=== PATIENT | female | born 1940 | race Caucasian/White ===

== ENCOUNTER → 2018-11-23 10:46 | Outpatient (CLI) | payer MEDICARE, SELFPAY ==
--- NOTE | 2018-11-23 | DI.MG.S_ITS ---
BILATERAL DIGITAL SCREENING MAMMOGRAM 3D/2D WITH CAD: 11/23/2018 CLINICAL: Routine screening. Family history of breast cancer. Comparison is made to exams dated: 09/24/2017 mammogram, 08/28/2016 mammogram, and 08/14/2015 mammogram - [facility]. There are scattered fibroglandular elements in both breasts. Current study was also evaluated with a Computer Aided Detection (CAD) system. There are benign calcifications in both breasts. No significant masses, calcifications, or other findings are seen in either breast. There has been no significant interval change. IMPRESSION: There is no mammographic evidence of malignancy. A 1 year screening mammogram is recommended. This exam was interpreted at Station ID: [id number]. NOTE: For mammograms, a report in lay terms will be sent to the patient. Approximately 15% of breast malignancies will not be visualized mammographically. In the management of a palpable breast mass, a negative mammogram must not discourage biopsy of a clinically suspicious lesion. Electronically Signed By: Harjeet urrutia/giselle:11/23/2018 13:50:00 letter sent: Normal Exam ACR BI-RADS Category 2: Benign Finding(s) 3342F
== END ==
PROVIDERS: PCP Family Medicine; Visit Provider Family Medicine
DX: Z12.31 Encounter for screening mammogram for malignant neoplasm of breast (principal); Z80.3 Family history of malignant neoplasm of breast
CPT/HCPCS: 77063; 77067

== ENCOUNTER → 2019-05-25 09:17 | Outpatient (CLI) | payer MEDICARE, SELFPAY ==
--- NOTE | 2019-05-25 | DI.RAD.S_ITS ---
PROCEDURE: XR KNEE STANDING BI INDICATIONS: CHRONIC PAIN OF BOTH KNEES TECHNIQUE: 2 views of the right knee, and 2 views of the left knee. COMPARISON: None. FINDINGS: Bones: No acute fractures or dislocations. Patellar alignment is normal on the sunrise view. No suspicious bony lesions. Joint spaces mildly narrowed medially in both knees with weightbearing. There is mild to moderate tricompartmental knee joint degeneration bilaterally. Soft tissues: No knee joint effusions. No suspicious soft tissue calcification. IMPRESSION: Mild to moderate osteoarthritis. Dictated by: Ann Keita M.D. on 05/25/2019 at 17:31 Approved by: Ann Keita M.D. on 05/25/2019 at 17:32
== END ==
PROVIDERS: PCP Family Medicine; Visit Provider Family Medicine
DX: M25.561 Pain in right knee (principal); M25.562 Pain in left knee; M17.0 Bilateral primary osteoarthritis of knee; G89.29 Other chronic pain
CPT/HCPCS: 73565

== ENCOUNTER → 2020-07-09 13:09 | Outpatient (CLI) | payer MEDICARE, SELFPAY ==
--- NOTE | 2020-07-09 13:12 | DI.US.S_ITS ---
PROCEDURE: US RENAL COMPLETE INDICATIONS: Chronic kidney disease, stage 3 unspecified TECHNIQUE: Real-time scanning was performed of the kidneys and bladder, with image documentation. COMPARISON: None. FINDINGS: Kidneys: Kidneys are normal in size. The kidneys demonstrate generalized increased echogenicity. Right kidney measures 11.1 cm long; left kidney measures 10.9 cm long. Right renal cortical thickness is 1.5 cm; left renal cortical thickness is 1.5 cm. Renal cortical echotexture is normal. No hydronephrosis or nephrolithiasis. No suspicious solid mass lesions. Bladder: Pre-void bladder volume is 86 mL. Post-void residual is 54 mL. Pre-void images demonstrate no intraluminal masses or stones. A possible cystocele can be seen along the posterior bladder wall. On pre-void images, both ureteral jets are noted with color Doppler interrogation. (Of note, ureteral jets may not be detectable in up to 25% of cases due to insufficient differences in specific gravity between ureteral and bladder urine). Miscellaneous: No free pelvic fluid. IMPRESSION: Generalized increased echogenicity is seen of the kidneys, which is consistent with the given clinical history chronic renal disease. No hydronephrosis is seen. Moderate postvoid residual, 54 cc. Possible cystocele seen along the posterior bladder. Dictated by: Twan Rollins M.D. on 07/09/2020 at 15:39 Approved by: Twan Rollins M.D. on 07/09/2020 at 15:40
== END ==
PROVIDERS: PCP Family Medicine; Referring Provider Student in an Organized Health Care Education/Training Program; Visit Provider Student in an Organized Health Care Education/Training Program
DX: N18.30 Chronic kidney disease, stage 3 unspecified (principal)
CPT/HCPCS: 76770

== ENCOUNTER → 2020-12-25 08:37 | Outpatient (CLI) | payer MEDICARE, SELFPAY ==
[2020-12-25 19:55] LABS: Hematocrit 40.7 % (36-46); Hemoglobin 13.3 g/dL (12.0-16.0)
[2020-12-25 20:15] LABS: BUN Creatinine Ratio 23.8 (6-22); Blood Urea Nitrogen 24 mg/dL (7-17); Calcium 9.5 mg/dL (8.4-10.2); Carbon Dioxide 32 mmol/L (22-32); Chloride 100 mmol/L (98-107); Estimated Glomerular Filt Rate 52.9 mL/min (>60); Glucose 142 mg/dL (80-110); HEMOLYSIS < 15 (0-50); Potassium 3.8 mmol/L (3.4-5.1); Sodium 137 mmol/L (137-145)
[2020-12-25 20:41] LABS: Creatinine Urine Random 86.5 mg/dL
[2020-12-27 07:39] LABS: Parathyroid Hormone Int 25 pg/mL (15-65)
== END ==
PROVIDERS: PCP Family Medicine; Visit Provider Student in an Organized Health Care Education/Training Program
DX: R80.9 Proteinuria, unspecified (principal)
CPT/HCPCS: 80048; 82570; 83970; 85014; 85018

== ENCOUNTER → 2021-01-08 08:35 | Outpatient (CLI) | payer MEDICARE, SELFPAY ==
[2021-01-08 19:56] LABS: Alanine Aminotransferase 13 IU/L (<35); Albumin 3.4 g/dL (3.5-5.0); Albumin Globulin Ratio 1.3 (1.0-2.8); Alkaline Phosphatase 53 U/L (38-126); Aspartate Aminotransferase 20 IU/L (14-36); Bilirubin Total 0.7 mg/dL (0.2-1.3); Bilirubin Unconjugated 0.6 mg/dL (0.0-1.1); Cholesterol 202 mg/dL (140-199); Globulin 2.7 g/dL (1.7-4.1); HDL Cholesterol 50 mg/dL (40-60); HEMOLYSIS < 15 (0-50); LDL Cholesterol Calculated 119 mg/dL (<100); Total Protein 6.1 g/dL (6.3-8.2); Triglycerides 164 mg/dL (35-150)
[2021-01-08 20:06] LABS: Hemoglobin A1C% w Est Avg Glu 6.8 % (4.0-6.0)
[2021-01-08 20:47] LABS: Vitamin B12 529 pg/mL (239-931)
== END ==
PROVIDERS: PCP Family Medicine; Visit Provider Physician Assistant
DX: E11.9 Type 2 diabetes mellitus without complications (principal); I10 Essential (primary) hypertension; E53.8 Deficiency of other specified B group vitamins; I42.2 Other hypertrophic cardiomyopathy; Z79.4 Long term (current) use of insulin
CPT/HCPCS: 80061; 80076; 82607; 83036

== ENCOUNTER → 2021-07-29 10:02 | Outpatient (CLI) | payer MEDICARE, SELFPAY ==
[2021-07-29 18:54] LABS: Alanine Aminotransferase 14 IU/L (<35); Albumin 3.6 g/dL (3.5-5.0); Albumin Globulin Ratio 1.3 (1.0-2.8); Alkaline Phosphatase 48 U/L (38-126); Aspartate Aminotransferase 22 IU/L (14-36); BUN Creatinine Ratio 25.7 (6-22); Bilirubin Total 0.8 mg/dL (0.2-1.3); Blood Urea Nitrogen 29 mg/dL (7-17); Carbon Dioxide 32 mmol/L (22-32); Chloride 98 mmol/L (98-107); Cholesterol 110 mg/dL (140-199); Estimated Glomerular Filt Rate 46.3 mL/min (>60); Globulin 2.8 g/dL (1.7-4.1); Glucose 181 mg/dL (80-110); HDL Cholesterol 43 mg/dL (40-60); HEMOLYSIS < 15 (0-50); LDL Cholesterol Calculated 37 mg/dL (<100); Potassium 4.2 mmol/L (3.4-5.1); Sodium 138 mmol/L (137-145); Total Protein 6.4 g/dL (6.3-8.2); Triglycerides 152 mg/dL (35-150)
[2021-07-29 18:58] LABS: Hemoglobin A1C% w Est Avg Glu 7.4 % (4.0-6.0)
== END ==
PROVIDERS: PCP Family Medicine; Referring Provider Family Medicine; Visit Provider Family Medicine
DX: I63.30 Cerebral infarction due to thrombosis of unspecified cerebral artery (principal); E11.9 Type 2 diabetes mellitus without complications; R79.89 Other specified abnormal findings of blood chemistry; Z79.4 Long term (current) use of insulin
CPT/HCPCS: 80053; 80061; 83036

== ENCOUNTER → 2021-09-09 10:38 | Outpatient (CLI) | payer MEDICARE, SELFPAY ==
--- NOTE | 2021-09-09 | DI.MG.S_ITS ---
BILATERAL DIGITAL SCREENING MAMMOGRAM 3D/2D WITH CAD: 09/09/2021 CLINICAL: Routine screening. Family history of breast cancer. Comparison is made to exams dated: 05/21/2020 mammogram - outside location, 11/23/2018 mammogram, and 09/24/2017 mammogram - [facility]. There are scattered fibroglandular elements in both breasts. Current study was also evaluated with a Computer Aided Detection (CAD) system. There are benign calcifications in both breasts. No significant masses, calcifications, or other findings are seen in either breast. There has been no significant interval change. IMPRESSION: BENIGN There is no mammographic evidence of malignancy. A 1 year screening mammogram is recommended. This exam was interpreted at Station ID: [id number]. NOTE: For mammograms, a report in lay terms will be sent to the patient. Approximately 15% of breast malignancies will not be visualized mammographically. In the management of a palpable breast mass, a negative mammogram must not discourage biopsy of a clinically suspicious lesion. Electronically Signed By: Kenia corbett/giselle:09/09/2021 17:46:32 letter sent: Normal Exam ACR BI-RADS Category 2: Benign Finding(s) 3342F
== END ==
PROVIDERS: PCP Family Medicine; Referring Provider Family Medicine; Visit Provider Family Medicine
DX: Z12.31 Encounter for screening mammogram for malignant neoplasm of breast (principal); Z80.3 Family history of malignant neoplasm of breast
CPT/HCPCS: 77063; 77067

== ENCOUNTER → 2021-09-12 10:59 | Outpatient (CLI) | payer MEDICARE, SELFPAY ==
[2021-09-12 18:57] LABS: Hematocrit 40.1 % (36-46); Hemoglobin 13.2 g/dL (12.0-16.0)
[2021-09-12 19:08] LABS: Alanine Aminotransferase 14 IU/L (<35); Albumin Globulin Ratio 1.4 (1.0-2.8); Alkaline Phosphatase 56 U/L (38-126); Aspartate Aminotransferase 23 IU/L (14-36); BUN Creatinine Ratio 23.8 (6-22); Blood Urea Nitrogen 24 mg/dL (7-17); Calcium 10.1 mg/dL (8.4-10.2); Carbon Dioxide 32 mmol/L (22-32); Chloride 99 mmol/L (98-107); Cholesterol 148 mg/dL (140-199); Estimated Glomerular Filt Rate 52.7 mL/min (>60); Globulin 2.9 g/dL (1.7-4.1); Glucose 160 mg/dL (80-110); HDL Cholesterol 51 mg/dL (40-60); HEMOLYSIS < 15 (0-50); LDL Cholesterol Calculated 69 mg/dL (<100); Potassium 4.3 mmol/L (3.4-5.1); Sodium 138 mmol/L (137-145); Total Protein 6.9 g/dL (6.3-8.2); Triglycerides 138 mg/dL (35-150)
[2021-09-12 19:22] LABS: Hemoglobin A1C% w Est Avg Glu 8.3 % (4.0-6.0)
[2021-09-12 20:12] LABS: Protein (Total) Urine Random 18 mg/dL (0-12)
[2021-09-12 22:05] LABS: Creatinine Urine Random 75.9 mg/dL; Protein Creatinine Ratio Urine 0.23 GRAM/24H
[2021-09-13 10:14] LABS: Parathyroid Hormone Int 37 pg/mL (15-65)
== END ==
PROVIDERS: PCP Family Medicine; Visit Provider Student in an Organized Health Care Education/Training Program
DX: E11.9 Type 2 diabetes mellitus without complications (principal); E78.2 Mixed hyperlipidemia; D64.9 Anemia, unspecified; R80.9 Proteinuria, unspecified; I63.30 Cerebral infarction due to thrombosis of unspecified cerebral artery; Z79.4 Long term (current) use of insulin; N25.81 Secondary hyperparathyroidism of renal origin; I63.9 Cerebral infarction, unspecified; N18.9 Chronic kidney disease, unspecified
CPT/HCPCS: 80053; 80061; 82570; 83036; 83970; 84156; 85014; 85018

== ENCOUNTER → 2021-12-02 08:32 | Outpatient (CLI) | payer MEDICARE, SELFPAY ==
[2021-12-02 19:17] LABS: Hemoglobin A1C% w Est Avg Glu 7.8 % (4.0-6.0)
[2021-12-02 19:19] LABS: Alanine Aminotransferase 13 IU/L (<35); Albumin 3.6 g/dL (3.5-5.0); Albumin Globulin Ratio 1.2 (1.0-2.8); Alkaline Phosphatase 48 U/L (38-126); Aspartate Aminotransferase 21 IU/L (14-36); BUN Creatinine Ratio 26.2 (6-22); Bilirubin Total 0.8 mg/dL (0.2-1.3); Blood Urea Nitrogen 28 mg/dL (7-17); Calcium 9.3 mg/dL (8.4-10.2); Carbon Dioxide 30 mmol/L (22-32); Chloride 99 mmol/L (98-107); Cholesterol 143 mg/dL (140-199); Estimated Glomerular Filt Rate 49.3 mL/min (>60); Globulin 2.9 g/dL (1.7-4.1); Glucose 187 mg/dL (80-110); HDL Cholesterol 47 mg/dL (40-60); HEMOLYSIS < 15 (0-50); LDL Cholesterol Calculated 72 mg/dL (<100); Potassium 4.1 mmol/L (3.4-5.1); Sodium 137 mmol/L (137-145); Total Protein 6.5 g/dL (6.3-8.2); Triglycerides 119 mg/dL (35-150)
[2021-12-02 19:46] LABS: TSH w/ Reflex to FT4 2.51 uIU/mL (0.47-4.68)
== END ==
PROVIDERS: PCP Family Medicine; Visit Provider Family Medicine
DX: I63.30 Cerebral infarction due to thrombosis of unspecified cerebral artery (principal); E78.2 Mixed hyperlipidemia; E11.9 Type 2 diabetes mellitus without complications; E78.5 Hyperlipidemia, unspecified; I10 Essential (primary) hypertension; N18.9 Chronic kidney disease, unspecified; Z79.4 Long term (current) use of insulin
CPT/HCPCS: 80053; 80061; 83036; 84443

== ENCOUNTER → 2022-03-03 09:33 | Outpatient (CLI) | payer MEDICARE, SELFPAY ==
[2022-03-03 18:42] LABS: Alanine Aminotransferase 14 IU/L (<35); Albumin 3.8 g/dL (3.5-5.0); Albumin Globulin Ratio 1.2 (1.0-2.8); Alkaline Phosphatase 53 U/L (38-126); Aspartate Aminotransferase 73 IU/L (14-36); BUN Creatinine Ratio 20.2 (6-22); Bilirubin Total 0.8 mg/dL (0.2-1.3); Blood Urea Nitrogen 22 mg/dL (7-17); Calcium 9.4 mg/dL (8.4-10.2); Carbon Dioxide 32 mmol/L (22-32); Chloride 96 mmol/L (98-107); Estimated Glomerular Filt Rate 51 mL/min (>60); Globulin 3.1 g/dL (1.7-4.1); Glucose 157 mg/dL (80-110); Sodium 135 mmol/L (137-145); Total Protein 6.9 g/dL (6.3-8.2)
[2022-03-03 18:43] LABS: HEMOLYSIS 21 (0-50)
[2022-03-03 18:46] LABS: Hemoglobin A1C% w Est Avg Glu 7.1 % (4.0-6.0)
== END ==
PROVIDERS: PCP Family Medicine; Visit Provider Family Medicine
DX: E11.9 Type 2 diabetes mellitus without complications (principal); E78.2 Mixed hyperlipidemia; I10 Essential (primary) hypertension; Z79.4 Long term (current) use of insulin
CPT/HCPCS: 80053; 83036

== ENCOUNTER → 2022-03-11 12:18 | Outpatient (CLI) | payer MEDICARE, SELFPAY ==
[2022-03-11 18:44] LABS: Alanine Aminotransferase 14 IU/L (<35); Albumin 3.7 g/dL (3.5-5.0); Albumin Globulin Ratio 1.5 (1.0-2.8); Alkaline Phosphatase 53 U/L (38-126); Aspartate Aminotransferase 22 IU/L (14-36); Bilirubin Total 1.2 mg/dL (0.2-1.3); Globulin 2.5 g/dL (1.7-4.1); HEMOLYSIS 18 (0-50); Total Protein 6.2 g/dL (6.3-8.2)
== END ==
PROVIDERS: PCP Family Medicine; Visit Provider Student in an Organized Health Care Education/Training Program
DX: R74.8 Abnormal levels of other serum enzymes (principal)
CPT/HCPCS: 80076

== ENCOUNTER → 2022-05-06 11:12 | Outpatient (CLI) | payer MEDICARE, SELFPAY ==
[2022-05-06 19:42] LABS: Hematocrit 39.3 % (36-46); Hemoglobin 13.3 g/dL (12.0-16.0)
[2022-05-06 19:57] LABS: BUN Creatinine Ratio 22.9 (6-22); Blood Urea Nitrogen 22 mg/dL (7-17); Calcium 9.5 mg/dL (8.4-10.2); Carbon Dioxide 28 mmol/L (22-32); Chloride 96 mmol/L (98-107); Estimated Glomerular Filt Rate 60 mL/min (>60); Glucose 129 mg/dL (80-110); HEMOLYSIS < 15 (0-50); Potassium 4.3 mmol/L (3.4-5.1); Sodium 134 mmol/L (137-145)
[2022-05-06 20:31] LABS: Creatinine Urine Random 97.4 mg/dL; Protein (Total) Urine Random 29 mg/dL (0-12); Protein Creatinine Ratio Urine 0.29 GRAM/24H
[2022-05-08 07:27] LABS: Parathyroid Hormone Int 31 pg/mL (15-65)
== END ==
PROVIDERS: Student in an Organized Health Care Education/Training Program; PCP Family Medicine; Visit Provider Surgery
DX: Z01.812 Encounter for preprocedural laboratory examination (principal); Z20.822 Contact with and (suspected) exposure to COVID-19; D64.9 Anemia, unspecified; N05.9 Unspecified nephritic syndrome with unspecified morphologic changes; N25.81 Secondary hyperparathyroidism of renal origin; R80.9 Proteinuria, unspecified
CPT/HCPCS: 80048; 82570; 83970; 84156; 85014; 85018

== ENCOUNTER → 2022-06-09 09:01 | Outpatient (CLI) | payer MEDICARE, SELFPAY ==
[2022-06-09 19:43] LABS: Alanine Aminotransferase 14 IU/L (<35); Albumin 3.8 g/dL (3.5-5.0); Albumin Globulin Ratio 1.3 (1.0-2.8); Alkaline Phosphatase 57 U/L (38-126); Aspartate Aminotransferase 19 IU/L (14-36); BUN Creatinine Ratio 19.8 (6-22); Blood Urea Nitrogen 20 mg/dL (7-17); Calcium 9.6 mg/dL (8.4-10.2); Carbon Dioxide 30 mmol/L (22-32); Chloride 98 mmol/L (98-107); Estimated Glomerular Filt Rate 56 mL/min (>60); Glucose 159 mg/dL (80-110); HEMOLYSIS < 15 (0-50); Potassium 4.4 mmol/L (3.4-5.1); Sodium 136 mmol/L (137-145); Total Protein 6.8 g/dL (6.3-8.2)
[2022-06-09 19:46] LABS: Hemoglobin A1C% w Est Avg Glu 6.3 % (4.0-6.0)
== END ==
PROVIDERS: PCP Family Medicine; Visit Provider Family Medicine
DX: E11.9 Type 2 diabetes mellitus without complications (principal); I10 Essential (primary) hypertension; N18.9 Chronic kidney disease, unspecified; Z79.4 Long term (current) use of insulin
CPT/HCPCS: 80053; 83036

== ENCOUNTER → 2022-06-15 07:01 | Outpatient (CLI) | payer MEDICARE, SELFPAY ==
[2022-06-15 21:16] LABS: COVID19 - ORCAS (NP or Nasal) Negative (Negative)
== END ==
PROVIDERS: PCP Family Medicine; Visit Provider Family Medicine
DX: Z01.812 Encounter for preprocedural laboratory examination (principal)
CPT/HCPCS: C9803; U0003

== ENCOUNTER 2022-06-16 11:00 | Day surgery (SDC) | payer MEDICARE, SELFPAY ==
--- NOTE | 2022-06-16 | PATH_ITS ---
[facility] Accession Number: [id number] . 01 Material submitted: . rectum - RECTAL POLYP . 01 Diagnosis: Rectum, Polyp, Biopsy: Hyperplastic polyp with features of mucosal prolapse. Additional levels were examined. MRV 06/22/2022 1253 Local . 01 Electronically signed: . Lachelle Crespo MD, Pathologist NPI- [id number] . 01 Gross description: . RECTAL POLYP: Received in formalin are 2 fragment(s) of marquez, soft tissue measuring 0.2 x 0.2 x 0.2 cm in aggregate submitted entirely in 1 cassette(s) /MICHELINE 06/17/2022 2221 Local . 01 Pathologist provided ICD-10: K62.1 . 01 CPT . 237487 Specimen Comment: A courtesy copy of this report has been sent to [phone] Performed at: 01 [facility] [address] [place] [address], [place], [place] [id number] MD Tremaine Nash MD Phone: [phone]
[2022-06-16] MEDS: LACTATED RINGERS 1,000 ML 200 ML IV (11:40)
[2022-06-16 11:42] VITALS: BP 160/83; PULSE 85; RESP 16; TEMP 36.7; O2SAT 97; BMI 32.5
[2022-06-16 11:59] VITALS: BMI 32.5
--- NOTE | 2022-06-16 12:28 | PM.HP.1 ---
History of Present Illness History of Present Illness Date Patient Seen: 06/16/22 Time Patient Seen: 12:28 Chief complaint: Colonoscopy Narrative: 82-year-old woman history of colon cancer 2002 stage 1, here for surveillance. Last colonoscopy 5 years ago normal. Has constipation otherwise no new gastrointestinal symptoms. Patient History Medical History Acne Allergies Cataracts, bilateral (~2005) Chicken pox CVA (cerebral vascular accident) Fibroids (~1990) Fractures (~1955) Hearing loss History of colon cancer, stage I (~2001) Hyperlipidemia Plantar warts (~1960) Vision disorder Surgical History Anesthesia History of cancer surgery (~2001) History of section (~1975) History of hysterectomy (~1990) Family & Social History Family History Father History of heart disease Mother Hypertension Stroke Grandmother Stroke Grandfather Cancer Social History: household members family Tobacco & Substance use: Smoking Status Former smoker alcohol intake frequency holiday/special occasion Substance Use Type does not use Meds Home Medications and Allergies Home Medications Medication Instructions Recorded Confirmed Type cholecalciferol (vitamin D3) 25 25 mcg PO DAILY 12/26/20 12/31/20 History mcg (1,000 unit) tablet cyanocobalamin (vitamin B-12) 1,000 mcg PO DAILY 12/26/20 06/16/22 History 1,000 mcg tablet,extended release metformin 500 mg tablet 500 mg PO BID #180 tabs 06/19/21 06/16/22 Rx atorvastatin 20 mg tablet 20 mg PO BEDTIME #90 tabs 08/13/21 06/16/22 Rx lisinopril 40 mg tablet 40 mg PO DAILY #90 tabs 02/12/22 06/16/22 Rx insulin glargine 100 unit/mL (3 24 unit (0.24 mL) SUBCUT BEDTIME 03/24/22 Rx mL) subcutaneous pen #15 mL nirmatrelvir 300 mg (150 mg See Rx Instructions PO .COMPLEX 04/17/22 Rx x2)-ritonavir 100 mg tablet,dose #30 tabs pack(EUA) (Paxlovid) atenolol 50 mg tablet 50 mg PO DAILY #90 tabs 04/29/22 06/16/22 Rx sodium sul 1.479 gram-potas ch See Rx Instructions PO PER PKG DIR 05/06/22 Rx 0.188 gram-magnes sul 0.225 gram #24 tabs tablet (Sutab) omega-3 acid ethyl esters 1 gram 1 cap PO TID #240 caps 05/08/22 Rx capsule semaglutide 0.25 mg or 0.5 mg (2 See Rx Instructions .Route 05/18/22 Rx mg/1.5 mL) subcutaneous pen .COMPLEX #4.5 mL injector (Ozempic) semaglutide 0.25 mg or 0.5 mg (2 0.2 mg SUBCUT 06/16/22 History mg/1.5 mL) subcutaneous pen injector (Ozempic) Allergies Allergy/AdvReac Type Severity Reaction Status Date / Time pollen extracts Allergy Mild Verified 06/16/22 11:53 Exam Vital Signs (past 8 hours): - 06/16/22 11:42 Temperature 98.1 F Pulse Rate 85 Respiratory Rate 16 Blood Pressure 160/83 H Pulse Oximetry 97 Oxygen Delivery Method Room Air Oxygen Delivery Method Room Air Narrative Exam Narrative: General elderly woman alert oriented no distress Abdomen soft nontender nondistended Assessment & Plan Assessment and plan (1) History of colon cancer: Status: Acute Assessment & Plan narrative: The patient requires colorectal screening and colonoscopy is recommended. Technical details were discussed. Risks, benefits, alternatives explained. Risks including but not limited to myocardial infarction, aspiration, bleeding, pain, missed lesion, incomplete examination, need for further radiographic studies, colonic perforation, and need for major abdominal surgery were discussed. All questions were answered to their satisfaction, and they are in agreement with this plan. Time Spent With Patient Critical Care time: I spent a total of [] minutes of critical care time on this patient's care today; this time is exclusive of procedural time.
--- NOTE | 2022-06-16 12:59 | P.OP.COLON_ITS ---
Operative Date/Time/Diagnoses Date of procedure: 06/16/22 Time of procedure: 12:59 Pre-op diagnosis: History of colon cancer Post-op diagnosis: same Procedure & Clinicians Study performed: Colonoscopy and polypectomy Same procedure as scheduled: Yes Indications: Screening. Personal history of colon cancer. Surgeon: Eduard Bautista Procedure Notes Procedure in detail: Medications: Conscious sedation using 2mg IV midazolam and 50 mcg IV of fe ntanyl The history and physical was performed/updated and the patient is ASA class is 2. The procedure was discussed in detail with the patient. Potential risks complications including infection, bleeding, missed diagnosis, perforation, need for surgery, and were explained. Their questions were answered and informed consent was obtained. Patient was brought to the procedure room and placed standard monitoring equipment. The patient's vital signs were monitored continuously throughout the entire procedure. Prior to starting time-out was performed. The patient was placed in the left lateral recumbent position. Procedural sedation was administered. Examination began with a thorough inspection of the perianal area there was no evidence of fissures, fistulae, external hemorrhoids or cutaneous malignancy. The colonoscopy scope was then placed into the anal canal and was advanced to the cecum, which was identified by the ileocecal valve, the appendiceal orifice and the confluence of the taenia. The scope was then slowly withdrawn examining colon thoroughly in all directions, irrigating it of any residual stool. FINDINGS 1. Surgically absent right colon. Normal ileocolic anastomosis 2. Rectum 3 mm polyp in the distal rectum removed with biopsy forceps The patient tolerated the procedure well. They will be discharged once criteria are met. The prep was of good/excellent quality. The withdrawl time was 9 minutes. The sedation time was 22 minutes. Specimen(s): other (Rectal polyp) Complications: none Impression: Colonic polyp Post-procedure Recommendations: Will call with biopsy results Disposition: same day surgery
[2022-06-16] MEDS: MIDAZOLAM 5 MG/5 ML VIAL IV (13:01)
[2022-06-16] MEDS: fentaNYL 100 MCG/2 ML INJ IV (13:01)
[2022-06-16 13:03] VITALS: BP 142/70; PULSE 78; RESP 14; TEMP 36.2; O2SAT 98
[2022-06-16 13:08] VITALS: BP 133/72; PULSE 77; RESP 16; O2SAT 98
[2022-06-16 13:09] VITALS: BP 150/78; PULSE 76; RESP 12; TEMP 36.1; O2SAT 97
[2022-06-16 13:39] VITALS: BP 145/72; PULSE 70; RESP 16; O2SAT 98
--- NOTE | 2022-06-16 14:03 | SUR.PHASEII ---
Patietn ambulated to wheelchair with steady gait. Tolerated fluids. Provided written and verbal discharge instructions. Patient stated understanding. Discharged by wheelchair to private vehicle in stable condition. See flowsheet for assessment details.
== END 2022-06-16 13:39 | disposition home or self-care (01) ==
PROVIDERS: PCP Family Medicine; Referring Provider Surgery; Visit Provider Surgery
PROC: 0DJD8ZZ Inspection of Lower Intestinal Tract, Via Natural or Artificial Opening Endoscopic (ICD-10-PCS; CPT 45378; principal; 2022-06-16 13:00)
DX: Z12.11 Encounter for screening for malignant neoplasm of colon (principal); Z85.038 Personal history of other malignant neoplasm of large intestine; Z90.49 Acquired absence of other specified parts of digestive tract; K62.1 Rectal polyp
CPT/HCPCS: 45380; 82962; 99152; J2250; J3010

== ENCOUNTER → 2022-10-06 10:31 | Outpatient (CLI) | payer MEDICARE, SELFPAY ==
[2022-10-06 19:32] LABS: Alanine Aminotransferase 14 IU/L (<35); Albumin 3.5 g/dL (3.5-5.0); Albumin Globulin Ratio 1.3 (1.0-2.8); Alkaline Phosphatase 58 U/L (38-126); Aspartate Aminotransferase 18 IU/L (14-36); BUN Creatinine Ratio 18.4 (6-22); Bilirubin Total 0.9 mg/dL (0.2-1.3); Blood Urea Nitrogen 18 mg/dL (7-17); Calcium 9.2 mg/dL (8.4-10.2); Carbon Dioxide 30 mmol/L (22-32); Chloride 100 mmol/L (98-107); Cholesterol 136 mg/dL (140-199); Estimated Glomerular Filt Rate 58 mL/min (>60); Globulin 2.8 g/dL (1.7-4.1); Glucose 115 mg/dL (80-110); HDL Cholesterol 45 mg/dL (40-60); HEMOLYSIS < 15 (0-50); Hemoglobin A1C% w Est Avg Glu 6.2 % (4.0-6.0); LDL Cholesterol Calculated 68 mg/dL (<100); Potassium 4.3 mmol/L (3.4-5.1); Sodium 138 mmol/L (137-145); Total Protein 6.3 g/dL (6.3-8.2); Triglycerides 116 mg/dL (35-150)
== END ==
PROVIDERS: PCP Family Medicine; Visit Provider Family Medicine
DX: E11.9 Type 2 diabetes mellitus without complications (principal); I63.30 Cerebral infarction due to thrombosis of unspecified cerebral artery; E78.5 Hyperlipidemia, unspecified; N18.31 Chronic kidney disease, stage 3a; Z79.4 Long term (current) use of insulin
CPT/HCPCS: 80053; 80061; 83036

== ENCOUNTER → 2022-11-17 13:05 | Outpatient (CLI) | payer MEDICARE, SELFPAY ==
[2022-11-17 19:13] LABS: Hematocrit 40.4 % (36-46); Hemoglobin 13.1 g/dL (12.0-16.0)
[2022-11-17 19:15] LABS: BUN Creatinine Ratio 16.5 (6-22); Blood Urea Nitrogen 16 mg/dL (7-17); Calcium 9.4 mg/dL (8.4-10.2); Carbon Dioxide 31 mmol/L (22-32); Chloride 98 mmol/L (98-107); Estimated Glomerular Filt Rate 59 mL/min (>60); Glucose 191 mg/dL (80-110); HEMOLYSIS < 15 (0-50); Potassium 4.8 mmol/L (3.4-5.1); Sodium 138 mmol/L (137-145)
[2022-11-17 19:37] LABS: Creatinine Urine Random 117.1 mg/dL; Protein (Total) Urine Random 122 mg/dL (0-12); Protein Creatinine Ratio Urine 1.04 GRAM/24H
[2022-11-21 14:22] LABS: Parathyroid Hormone Int 33 pg/mL (15-65)
== END ==
PROVIDERS: PCP Family Medicine; Visit Provider Student in an Organized Health Care Education/Training Program
DX: D64.9 Anemia, unspecified (principal); N05.9 Unspecified nephritic syndrome with unspecified morphologic changes; N25.81 Secondary hyperparathyroidism of renal origin; R80.9 Proteinuria, unspecified
CPT/HCPCS: 80048; 82570; 83970; 84156; 85014; 85018

== ENCOUNTER → 2023-01-06 14:31 | Outpatient (CLI) | payer MEDICARE, SELFPAY ==
[2023-01-06 20:01] LABS: Add Manual Diff / Slide Review NO; BUN Creatinine Ratio 16.8 (6-22); Basophils Absolute Auto 0 /uL (0-100); Basophils Percent Auto 0.4 % (0-2); Blood Urea Nitrogen 17 mg/dL (7-17); Calcium 9.2 mg/dL (8.4-10.2); Carbon Dioxide 30 mmol/L (22-32); Chloride 97 mmol/L (98-107); Eosinophils Absolute Auto 100 /uL (0-450); Eosinophils Percent Auto 1.3 % (2-4); Estimated Glomerular Filt Rate 56 mL/min (>60); Glucose 115 mg/dL (80-110); HEMOLYSIS < 15 (0-50); Hematocrit 38.6 % (36-46); Lymphocytes Absolute Auto 3000 /uL (1100-4500); Mean Corpuscular HGB Conc 33.8 % (30-36); Mean Corpuscular Hemoglobin 26.7 PG (26-34); Mean Corpuscular Volume 79.1 fL (80-100); Monocytes Absolute Auto 1200 /uL (0-900); Neutrophils Absolute Auto 6400 /uL (1500-7000); Neutrophils Percent Auto 59.3 % (50-75); Platelet Count 238 X10^3/uL (150-400); Potassium 4.1 mmol/L (3.4-5.1); Red Blood Cell Count 4.88 X10^6/uL (4.0-5.2); Red Cell Distribution Width 13.9 % (11.6-14.8); Sodium 135 mmol/L (137-145); White Blood Cell Count 10.7 X10^3/uL (4.5-11.0)
[2023-01-06 20:27] LABS: Creatinine Urine Random 60.9 mg/dL; Protein (Total) Urine Random 74 mg/dL (0-12); Protein Creatinine Ratio Urine 1.21 GRAM/24H
[2023-01-06 20:51] LABS: Vitamin B12 597 pg/mL (239-931)
== END ==
PROVIDERS: Student in an Organized Health Care Education/Training Program; PCP Family Medicine; Visit Provider Family Medicine
DX: D51.9 Vitamin B12 deficiency anemia, unspecified (principal); N05.9 Unspecified nephritic syndrome with unspecified morphologic changes; R80.9 Proteinuria, unspecified
CPT/HCPCS: 80048; 82570; 82607; 84156; 85025

== ENCOUNTER → 2023-01-12 10:55 | Outpatient (CLI) | payer MEDICARE, SELFPAY ==
--- NOTE | 2023-01-12 | DI.MG.S_ITS ---
BILATERAL DIGITAL SCREENING MAMMOGRAM 3D/2D WITH CAD: 01/12/2023 CLINICAL: Routine screening. Family history of breast cancer. Comparison is made to exams dated: 09/09/2021 mammogram - [facility], 05/21/2020 mammogram - outside [facility], and 11/23/2018 mammogram - [facility]. There are scattered areas of fibroglandular density in both breasts (category b / 25%-50% glandular tissue). Current study was also evaluated with a Computer Aided Detection (CAD) system. There are benign calcifications in both breasts. No significant masses, calcifications, or other findings are seen in either breast. There has been no significant interval change. IMPRESSION: BENIGN There is no mammographic evidence of malignancy. A 1 year screening mammogram is recommended. Based on the Tyrer Cuzick model (a risk assessment model) the patient's lifetime risk is 2.2% and her 10 year risk is 0.0%. According to the ACR, ACS, and NCCN guidelines, an annual breast MRI exam along with mammogram is recommended if the patient's lifetime risk is 20% or greater. This exam was interpreted at Station ID: [id number]. NOTE: For mammograms, a report in lay terms will be sent to the patient. Approximately 15% of breast malignancies will not be visualized mammographically. In the management of a palpable breast mass, a negative mammogram must not discourage biopsy of a clinically suspicious lesion. Electronically Signed By: Kenia corbett/giselle:01/12/2023 16:35:08 letter sent: Normal Exam ACR BI-RADS Category 2: Benign Finding(s) 3342F
== END ==
PROVIDERS: PCP Family Medicine; Referring Provider Family Medicine; Visit Provider Family Medicine
DX: Z12.31 Encounter for screening mammogram for malignant neoplasm of breast (principal); Z80.3 Family history of malignant neoplasm of breast
CPT/HCPCS: 77063; 77067

== ENCOUNTER → 2023-06-09 10:20 | Outpatient (CLI) | payer MEDICARE, SELFPAY ==
[2023-06-09 19:18] LABS: Hematocrit 37.7 % (36-46); Hemoglobin 12.6 g/dL (12.0-16.0)
[2023-06-09 19:27] LABS: Blood Urea Nitrogen 23 mg/dL (7-17); Calcium 9.5 mg/dL (8.4-10.2); Carbon Dioxide 28 mmol/L (22-32); Chloride 98 mmol/L (98-107); Estimated Glomerular Filt Rate 56 mL/min (>60); Glucose 157 mg/dL (80-110); HEMOLYSIS 19 (0-50); Potassium 4.4 mmol/L (3.4-5.1); Sodium 134 mmol/L (137-145)
[2023-06-09 19:46] LABS: Creatinine Urine Random 87.5 mg/dL; Protein (Total) Urine Random 95 mg/dL (0-12); Protein Creatinine Ratio Urine 1.08 GRAM/24H
[2023-06-09 19:50] LABS: TSH w/ Reflex to FT4 1.84 uIU/mL (0.47-4.68)
[2023-06-11 10:08] LABS: Parathyroid Hormone Int 32 pg/mL (15-65)
== END ==
PROVIDERS: PCP Family Medicine; Visit Provider Student in an Organized Health Care Education/Training Program
DX: E78.2 Mixed hyperlipidemia (principal); N05.9 Unspecified nephritic syndrome with unspecified morphologic changes; D64.9 Anemia, unspecified; R80.9 Proteinuria, unspecified; N25.81 Secondary hyperparathyroidism of renal origin
CPT/HCPCS: 80048; 82570; 83970; 84156; 84443; 85014; 85018

== ENCOUNTER → 2023-07-27 11:52 | Outpatient (CLI) | payer MEDICARE, SELFPAY ==
[2023-07-27 19:18] LABS: BUN Creatinine Ratio 16.7 (6-22); Blood Urea Nitrogen 19 mg/dL (7-17); Calcium 9.9 mg/dL (8.4-10.2); Carbon Dioxide 26 mmol/L (22-32); Chloride 99 mmol/L (98-107); Estimated Glomerular Filt Rate 48 mL/min (>60); Glucose 152 mg/dL (80-110); HEMOLYSIS < 15 (0-50); Potassium 4.2 mmol/L (3.4-5.1); Sodium 136 mmol/L (137-145)
[2023-07-27 19:47] LABS: Creatinine Urine Random 122.2 mg/dL; Protein (Total) Urine Random 143 mg/dL (0-12); Protein Creatinine Ratio Urine 1.17 GRAM/24H
[2023-07-27 19:48] LABS: Hemoglobin A1C% w Est Avg Glu 6.5 % (4.0-6.0)
== END ==
PROVIDERS: Student in an Organized Health Care Education/Training Program; PCP Family Medicine; Visit Provider Family Medicine
DX: E11.8 Type 2 diabetes mellitus with unspecified complications (principal); N05.9 Unspecified nephritic syndrome with unspecified morphologic changes; R80.9 Proteinuria, unspecified
CPT/HCPCS: 80048; 82570; 83036; 84156

== ENCOUNTER → 2023-10-14 14:31 | Outpatient (CLI) | payer MEDICARE, SELFPAY ==
[2023-10-14 20:01] LABS: Hematocrit 42.1 % (36-46); Hemoglobin 13.7 g/dL (12.0-16.0)
[2023-10-14 20:14] LABS: BUN Creatinine Ratio 20.7 (6-22); Blood Urea Nitrogen 24 mg/dL (7-17); Calcium 9.5 mg/dL (8.4-10.2); Carbon Dioxide 25 mmol/L (22-32); Chloride 102 mmol/L (98-107); Estimated Glomerular Filt Rate 47 mL/min (>60); Glucose 94 mg/dL (80-110); HEMOLYSIS 24 (0-50); Sodium 138 mmol/L (137-145)
[2023-10-14 21:02] LABS: Creatinine Urine Random 80.8 mg/dL; Protein (Total) Urine Random 57 mg/dL (0-12)
[2023-10-19 05:49] LABS: Parathyroid Hormone Int 39 pg/mL (15-65)
== END ==
PROVIDERS: PCP Family Medicine; Visit Provider Student in an Organized Health Care Education/Training Program
DX: N05.9 Unspecified nephritic syndrome with unspecified morphologic changes (principal); D70.9 Neutropenia, unspecified; D63.1 Anemia in chronic kidney disease; N25.81 Secondary hyperparathyroidism of renal origin; R80.9 Proteinuria, unspecified
CPT/HCPCS: 80048; 82570; 83970; 84156; 85014; 85018

== ENCOUNTER → 2023-11-01 10:45 | Outpatient (CLI) | payer MEDICARE, SELFPAY | PROVIDERS: PCP Family Medicine; Visit Provider Family Medicine | DX: E11.8 Type 2 diabetes mellitus with unspecified complications (principal) | CPT/HCPCS: 83036 ==

== ENCOUNTER → 2024-02-01 13:19 | Outpatient (CLI) | payer MEDICARE, SELFPAY ==
--- NOTE | 2024-02-01 13:22 | DI.MG.S_ITS ---
BILATERAL DIGITAL SCREENING MAMMOGRAM 3D/2D WITH CAD: 02/01/2024 CLINICAL: Routine screening. Family history of breast cancer. Comparison is made to exams dated: 01/12/2023 mammogram, 09/09/2021 mammogram - [facility], and 05/21/2020 mammogram - outside location. There are scattered areas of fibroglandular density in both breasts (category b / 25%-50% glandular tissue). Current study was also evaluated with a Computer Aided Detection (CAD) system. There are benign calcifications in both breasts. No significant masses, calcifications, or other findings are seen in either breast. There has been no significant interval change. IMPRESSION: BENIGN There is no mammographic evidence of malignancy. A 1 year screening mammogram is recommended. Based on the Tyrer Cuzick model (a risk assessment model) the patient's lifetime risk is 1.7% and her 10 year risk is 0.0%. According to the ACR, ACS, and NCCN guidelines, an annual breast MRI exam along with mammogram is recommended if the patient's lifetime risk is 20% or greater. This exam was interpreted at Station ID: [id number]. NOTE: For mammograms, a report in lay terms will be sent to the patient. Approximately 15% of breast malignancies will not be visualized mammographically. In the management of a palpable breast mass, a negative mammogram must not discourage biopsy of a clinically suspicious lesion. Electronically Signed By: Harjeet urrutia/giselle:02/01/2024 18:14:13 letter sent: Normal Exam ACR BI-RADS Category 2: Benign Finding(s) 3342F
== END ==
PROVIDERS: PCP Family Medicine; Referring Provider Family Medicine; Visit Provider Family Medicine
DX: Z12.31 Encounter for screening mammogram for malignant neoplasm of breast (principal); Z80.3 Family history of malignant neoplasm of breast; R92.323 Mammographic fibroglandular density, bilateral breasts
CPT/HCPCS: 77063; 77067

== ENCOUNTER → 2024-02-07 14:22 | Outpatient (CLI) | payer MEDICARE, SELFPAY ==
[2024-02-07 19:40] LABS: Hematocrit 43.7 % (36-46); Hemoglobin 14.6 g/dL (12.0-16.0)
[2024-02-07 19:52] LABS: Blood Urea Nitrogen 20 mg/dL (7-17); Calcium 9.6 mg/dL (8.4-10.2); Carbon Dioxide 30 mmol/L (22-32); Chloride 103 mmol/L (98-107); Estimated Glomerular Filt Rate 50 mL/min (>60); Glucose 134 mg/dL (80-110); HEMOLYSIS 29 (0-50); Potassium 4.5 mmol/L (3.4-5.1); Sodium 137 mmol/L (137-145)
[2024-02-07 20:00] LABS: Creatinine Urine Random 74.38 mg/dL; Protein (Total) Urine Random 56 mg/dL (0-12); Protein Creatinine Ratio Urine 0.75 GRAM/24H
[2024-02-09 08:10] LABS: Parathyroid Hormone Int 29 pg/mL (15-65)
== END ==
PROVIDERS: PCP Family Medicine; Visit Provider Student in an Organized Health Care Education/Training Program
DX: N05.9 Unspecified nephritic syndrome with unspecified morphologic changes (principal); D70.9 Neutropenia, unspecified; D63.1 Anemia in chronic kidney disease; N25.81 Secondary hyperparathyroidism of renal origin; R80.9 Proteinuria, unspecified
CPT/HCPCS: 80048; 82570; 83970; 84156; 85014; 85018

== ENCOUNTER → 2024-03-09 13:36 | Outpatient (CLI) | payer MEDICARE, SELFPAY ==
--- NOTE | 2024-03-09 13:39 | DI.ECHO.S_ITS ---
[facility] : : [address] : : [place] : : [id number] : : Phone: [phone] Echocardiogram Report + + :Name: ELISA PADILLA Study Date: 03/09/2024 Height: 63 in : :[facility] ReadingLocation: Weight: 187 lb : : Gender: Female BSA: 1.9 m2 : :: 1940 Age: 83 yrs BP: 141/85 mmHg: :Reason For Study: HYPERTROPHIC CARDIOMYOPATHY : :Ordering Physician: DEE, : :STEVE Performed By: Alise Muir : :Referring: STEVE PRICE : + + Interpretation Summary 1) Small left ventricular cavity with moderately increased thickness (concentric) and normal wall motion, and normal systolic function (EF 60-65%). No LVOT gradient noted. 2) Grossly, normal right ventricular size and function. 3) No significant valvular abnormalities. 4) No prior Echo available for comparison. Procedure: A two-dimensional transthoracic echocardiogram with color flow and Doppler was performed. The study quality was technically adequate. There is no prior echocardiogram noted for this patient. The patient was in sinus rhythm with heart rates between 73-81 bpm during the exam. Left Ventricle: The left ventricular cavity is small. The estimated left ventricular end diastolic volume is 42 ml. There is moderate concentric left ventricular hypertrophy. The ejection fraction is estimated to be 65-70%. Left ventricular systolic function appears normal without focal wall motion abnormalities. Right Ventricle: The right ventricle is not well visualized. The right ventricle grossly appears normal in size with probable normal systolic function. Atria: The left atrial size is normal. Right atrial size is normal. Lipomatous hypertrophy of the interatrial septum is noted. A patent foramen ovale is suspected. Mitral Valve: The mitral valve leaflets are mildly calcified. There is mild mitral annular calcification. There is no mitral regurgitation noted. Aortic Valve: The aortic valve is trileaflet. The aortic valve opens well. There is no aortic valve stenosis. There is trace aortic regurgitation. Tricuspid Valve: The tricuspid valve is not well visualized, but is grossly normal. There is trace tricuspid regurgitation. Pulmonary artery pressures cannot be estimated because of the lack of a measurable TR jet velocity. Pulmonic Valve: The pulmonic valve leaflets are thin and pliable; valve motion is normal. There is trace pulmonic regurgitation. Great Vessels: The aortic root is normal size. The dimensions of the ascending aorta are normal. The IVC is of normal diameter and collapses greater than 50% with a sniff. This suggests a low right atrial pressure of 3 mm Hg. Pericardium/ Pleura There is no pericardial effusion. There is no pleural effusion. MMode/2D Measurements & Calculations LVIDd: 4.7 cm LVOT diam: 2.0 cm LVIDs: 2.8 cm Ao root diam: 3.6 cm FS: 39.7 % asc Aorta Diam: 3.6 cm IVSd: 1.7 cm Ao Arch Diam (Prox Trans): 2.7 cm LVPWd: 1.1 cm LV noble. diameter/BSA (cm/m^2): 2.5 LV sys. diameter/BSA (cm/m^2): 1.5 LA A2 area: 17.2 cm2 RA long axis: 4.2 cm LA A4 area: 20.4 cm2 RA area: 9.5 cm2 LA length (vol): 5.2 cm RA vol: 18.4 ml LA vol: 56.9 ml RA : 9.8 ml/m2 LA vol index: 30.3 ml/m2 IVC diam: 1.6 cm RVD1 (basal): 3.2 cm Doppler Measurements & Calculations Ao V2 max: 160.4 cm/sec LVOT Max Yoandy: 126.4 cm/sec Ao V2 mean: 114.5 cm/sec LV V1 max P.4 mmHg Ao max P.3 mmHg LV V1 VTI: 25.8 cm Ao mean P.7 mmHg SOPHIE(I,D): 2.7 cm2 Ao V2 VTI: 30.5 cm SOPHIE(V,D): 2.5 cm2 sev ratio: 0.85 SOPHIE indexed to BSA (cm^2/m^2): 1.4 MV E max yoandy: 63.9 cm/sec PA V2 max: 109.0 cm/sec MV A max yoandy: 124.7 cm/sec PA V2 mean: 76.4 cm/sec MV E/A: 0.51 PA mean P.5 mmHg Med Peak E' Yoandy: 4.4 cm/sec E/E' med: 14.5 Lat Peak E' Yoandy: 4.3 cm/sec E/E' lat: 15.0 E/e' average: 14.7 MV dec time: 0.27 sec MVA(VTI): 2.7 cm2 MV V2 mean: 72.6 cm/sec SV(LVOT): 82.2 ml MV mean P.4 mmHg MV V2 VTI: 30.4 cm Reading Physician:04:49 PM
== END ==
LOC: ECHO 13:36
PROVIDERS: PCP Family Medicine; Referring Provider Internal Medicine Cardiovascular Disease; Visit Provider Internal Medicine Cardiovascular Disease
DX: I42.2 Other hypertrophic cardiomyopathy (principal); I34.81 Nonrheumatic mitral (valve) annulus calcification
CPT/HCPCS: 93306

== ENCOUNTER → 2024-08-15 11:35 | Outpatient (CLI) | payer MEDICARE, SELFPAY ==
[2024-08-15 19:34] LABS: Add Manual Diff / Slide Review NO; Basophils Absolute Auto 0 /uL (0-100); Basophils Percent Auto 0.5 % (0-2); Eosinophils Absolute Auto 100 /uL (0-450); Eosinophils Percent Auto 1.2 % (2-4); Hemoglobin 14.4 g/dL (12.0-16.0); Lymphocytes Absolute Auto 2100 /uL (1100-4500); Lymphocytes Percent Auto 23.3 % (25-40); Mean Corpuscular HGB Conc 32.6 % (30-36); Mean Corpuscular Hemoglobin 26.9 PG (26-34); Mean Corpuscular Volume 82.5 fL (80-100); Monocytes Absolute Auto 800 /uL (0-900); Monocytes Percent Auto 8.9 % (3-14); Neutrophils Absolute Auto 5900 /uL (1500-7000); Neutrophils Percent Auto 66.1 % (50-75); Platelet Count 233 X10^3/uL (150-400); Red Blood Cell Count 5.34 X10^6/uL (4.0-5.2); Red Cell Distribution Width 14.4 % (11.6-14.8); White Blood Cell Count 8.9 X10^3/uL (4.5-11.0)
[2024-08-15 19:36] LABS: Alanine Aminotransferase 17 IU/L (<35); Albumin 3.6 g/dL (3.5-5.0); Albumin Globulin Ratio 1.2 (1.0-2.8); Alkaline Phosphatase 67 U/L (38-126); Aspartate Aminotransferase 23 IU/L (14-36); BUN Creatinine Ratio 19.7 (6-22); Bilirubin Total 0.9 mg/dL (0.2-1.3); Blood Urea Nitrogen 24 mg/dL (7-17); Calcium 9.8 mg/dL (8.4-10.2); Carbon Dioxide 30 mmol/L (22-32); Chloride 101 mmol/L (98-107); Cholesterol 146 mg/dL (140-199); Estimated Glomerular Filt Rate 44 mL/min (>60); Globulin 2.9 g/dL (1.7-4.1); Glucose 177 mg/dL (80-110); HDL Cholesterol 51 mg/dL (40-60); HEMOLYSIS < 15 (0-50); LDL Cholesterol Calculated 63 mg/dL (<100); Potassium 4.4 mmol/L (3.4-5.1); Sodium 134 mmol/L (137-145); Total Protein 6.5 g/dL (6.3-8.2); Triglycerides 159 mg/dL (35-150)
[2024-08-15 20:04] LABS: Creatinine Urine Random 74.66 mg/dL
[2024-08-15 20:05] LABS: Thyroid Stimulating Hormone 2.15 uIU/mL (0.47-4.68)
[2024-08-15 20:08] LABS: Microalbumin Urine Random 10.1 mg/dL (0-1.6)
[2024-08-17 12:36] LABS: Calcium 9.8 mg/dL (8.7-10.3); Parathyroid Hormone, Intact 33 pg/mL (15-65)
== END ==
PROVIDERS: PCP Family Medicine; Visit Provider Family Medicine
DX: I10 Essential (primary) hypertension (principal); E11.8 Type 2 diabetes mellitus with unspecified complications; E11.3299 Type 2 diabetes mellitus with mild nonproliferative diabetic retinopathy without macular edema, unspecified eye; E11.22 Type 2 diabetes mellitus with diabetic chronic kidney disease; E78.5 Hyperlipidemia, unspecified; E66.9 Obesity, unspecified
CPT/HCPCS: 80053; 80061; 82043; 82310; 82570; 83036; 83970; 84443; 85025

== ENCOUNTER → 2024-10-11 11:59 | Outpatient (CLI) | payer MEDICARE, SELFPAY ==
[2024-10-11 21:58] LABS: Hematocrit 43.8 % (36-46); Hemoglobin 14.3 g/dL (12.0-16.0)
[2024-10-11 22:06] LABS: BUN Creatinine Ratio 18.6 (6-22); Blood Urea Nitrogen 22 mg/dL (7-17); Calcium 9.5 mg/dL (8.4-10.2); Carbon Dioxide 27 mmol/L (22-32); Chloride 102 mmol/L (98-107); Estimated Glomerular Filt Rate 46 mL/min (>60); Glucose 109 mg/dL (80-110); HEMOLYSIS 20 (0-50); Potassium 4.4 mmol/L (3.4-5.1); Sodium 136 mmol/L (137-145)
[2024-10-11 23:14] LABS: Creatinine Urine Random 114.73 mg/dL; Protein (Total) Urine Random 42 mg/dL (0-12); Protein Creatinine Ratio Urine 0.36 GRAM/24H
[2024-10-13 05:12] LABS: Parathyroid Hormone Int 34 pg/mL (15-65)
== END ==
PROVIDERS: PCP Family Medicine; Visit Provider Student in an Organized Health Care Education/Training Program
DX: N05.9 Unspecified nephritic syndrome with unspecified morphologic changes (principal); D70.9 Neutropenia, unspecified; D63.1 Anemia in chronic kidney disease; N25.81 Secondary hyperparathyroidism of renal origin; R80.9 Proteinuria, unspecified
CPT/HCPCS: 80048; 82570; 83970; 84156; 85014; 85018

== ENCOUNTER → 2025-04-10 11:26 | Outpatient (CLI) | payer MEDICARE, SELFPAY ==
[2025-04-10 19:31] LABS: Hematocrit 43.7 % (36-46); Hemoglobin 14.5 g/dL (12.0-16.0); Mean Corpuscular HGB Conc 33.1 % (30-36); Mean Corpuscular Hemoglobin 27.1 PG (26-34); Mean Corpuscular Volume 81.9 fL (80-100); Platelet Count 226 X10^3/uL (150-400)
[2025-04-10 19:53] LABS: Alanine Aminotransferase 17 IU/L (<35); Albumin 4.0 g/dL (3.5-5.0); Albumin Globulin Ratio 1.4 (1.0-2.8); Alkaline Phosphatase 62 U/L (38-126); Blood Urea Nitrogen 22 mg/dL (7-17); Calcium 9.5 mg/dL (8.4-10.2); Carbon Dioxide 25 mmol/L (22-32); Chloride 100 mmol/L (98-107); Estimated Glomerular Filt Rate 43 mL/min (>60); Globulin 2.8 g/dL (1.7-4.1); Glucose 114 mg/dL (70-99); HEMOLYSIS < 15 (0-50); Potassium 4.7 mmol/L (3.4-5.1); Sodium 136 mmol/L (137-145); Total Protein 6.8 g/dL (6.3-8.2)
[2025-04-10 20:42] LABS: Protein (Total) Urine Random 34 mg/dL (0-12); Protein Creatinine Ratio Urine 0.29 GRAM/24H
== END ==
PROVIDERS: PCP Family Medicine; Visit Provider Family Medicine
DX: E11.3293 Type 2 diabetes mellitus with mild nonproliferative diabetic retinopathy without macular edema, bilateral (principal); Z79.4 Long term (current) use of insulin; I63.30 Cerebral infarction due to thrombosis of unspecified cerebral artery; E11.22 Type 2 diabetes mellitus with diabetic chronic kidney disease; N18.31 Chronic kidney disease, stage 3a; I10 Essential (primary) hypertension; G47.33 Obstructive sleep apnea (adult) (pediatric); E66.01 Morbid (severe) obesity due to excess calories
CPT/HCPCS: 80053; 82570; 84156; 85027

== ENCOUNTER → 2025-08-20 14:27 | Outpatient (CLI) | payer MEDICARE, SELFPAY ==
[2025-08-20 19:24] LABS: Hematocrit 45.0 % (36-46); Hemoglobin 15.1 g/dL (12.0-16.0)
[2025-08-20 19:36] LABS: Blood Urea Nitrogen 20 mg/dL (7-17); Calcium 9.9 mg/dL (8.4-10.2); Carbon Dioxide 29 mmol/L (22-32); Chloride 100 mmol/L (98-107); Estimated Glomerular Filt Rate 44 mL/min (>60); Glucose 134 mg/dL (70-99); HEMOLYSIS < 15 (0-50); Potassium 4.5 mmol/L (3.4-5.1); Sodium 140 mmol/L (137-145)
[2025-08-20 19:49] LABS: Protein (Total) Urine Random 46 mg/dL (0-12); Protein Creatinine Ratio Urine 0.38 GRAM/24H
== END ==
PROVIDERS: PCP Family Medicine; Visit Provider Student in an Organized Health Care Education/Training Program
DX: N05.9 Unspecified nephritic syndrome with unspecified morphologic changes (principal); D70.9 Neutropenia, unspecified; D63.1 Anemia in chronic kidney disease; N25.81 Secondary hyperparathyroidism of renal origin; R80.9 Proteinuria, unspecified
CPT/HCPCS: 80048; 82570; 83970; 84156; 85014; 85018